=== PATIENT | female | born 1980 | race Caucasian/White ===

== ENCOUNTER 2018-07-08 09:55 | Inpatient (IN) | payer OTHER ==
[~2018-07-08 09:55] MED LIST: CEFAZOLIN 1 GM INJ; DEXAMETHASONE 4 MG/ML 1 ML INJ; METOCLOPRAMIDE 10 MG INJ; ONDANSETRON 4 MG INJ; PROPOFOL 200 MG INJ; ROCURONIUM 50 MG INJ
[2018-07-08] MEDS ORDERED: FENTAnyl 50 MCG/ML VIAL ×3 (11:27→14:17)
[2018-07-08] MEDS ORDERED: MIDAZOLAM 1 MG/ML 2 ML INJ (11:28)
[2018-07-08] MEDS ORDERED: DEXAMETHASONE 4 MG/ML 1 ML INJ (11:29)
[2018-07-08] MEDS ORDERED: ROCURONIUM 50 MG INJ (11:29)
[2018-07-08] MEDS ORDERED: SUCCINYLCHOLINE CHLORIDE 100 MG/5 ML SYG IV (11:29)
[2018-07-08] MEDS ORDERED: NALOXONE (0.4 MG/ML) INJ IV (12:00)
[2018-07-08] MEDS ORDERED: BISACODYL 10 MG SUPP PR (12:00)
[2018-07-08] MEDS: CEFAZOLIN 1 GM/50 ML (PMX) 50 ML IVPB ×2 (12:00→21:51)
[2018-07-08] MEDS ORDERED: AL HYDROX/MG HYDROX/SIMETH 30 ML CUP PO (12:00)
[2018-07-08] MEDS ORDERED: DIPHENHYDRAMINE 25 MG CAP PO (12:00)
[2018-07-08] MEDS ORDERED: ACETAMINOPHEN 325 MG TAB PO (12:00)
[2018-07-08] MEDS ORDERED: HYDROmorphONE 0.5 MG/0.5 ML SYG IV (12:00)
[2018-07-08] MEDS: HEPARIN 1000 UNITS/ML 10 ML INJ (12:29)
[2018-07-08] MEDS: CEFAZOLIN 1 GM INJ (12:29)
[2018-07-08] MEDS: SURGIFOAM POWDER 1 GM KIT ×3 (12:29→16:59)
[2018-07-08] MEDS: CA CHLORIDE 10% 10 ML SYRINGE (12:29)
[2018-07-08] MEDS ORDERED: SODIUM CL BACTERIOSTATIC 30 ML INJ (12:29)
[2018-07-08] MEDS: GELATIN SIZE 100 SPONGE (12:29)
[2018-07-08] MEDS: BUPIVACAINE 0.5%/EPI (SDV) 30 ML INJ (12:29)
[2018-07-08] MEDS: THROMBIN 5000 UNIT VIAL (12:29)
[2018-07-08] MEDS ORDERED: PROPOFOL 20 ML ×2 (12:40→18:15)
[2018-07-08] MEDS ORDERED: LIDOCAINE 2% (SDV) 5 ML INJ (12:40)
[2018-07-08] MEDS ORDERED: PHENYLephrine (100 MCG/ML) 5ML SYG (13:14)
[2018-07-08] MEDS ORDERED: SURGIFOAM POWDER 1 GM KIT (14:16)
[2018-07-08] MEDS ORDERED: LABETALOL HCL 20MG INJ (14:23)
[2018-07-08] MEDS ORDERED: THROMBIN 5000 UNIT VIAL ×5 (14:40→16:47)
[2018-07-08] MEDS ORDERED: GELATIN SIZE 100 SPONGE (15:31)
[2018-07-08] MEDS ORDERED: HYDROmorphONE 2 MG/ML SYG (15:47)
[2018-07-08] MEDS ORDERED: ACETAMINOPHEN 1000MG/100ML IV 100 ML (17:47)
[2018-07-08] MEDS: PROPOFOL 200 MG INJ IV (18:23)
[2018-07-08] MEDS ORDERED: MEPERIDINE 25 MG INJ (18:24)
[2018-07-08] MEDS ORDERED: MIDAZOLAM 1 MG/ML 2 ML INJ IV (18:30)
[2018-07-08] MEDS ORDERED: LABETALOL HCL 20MG INJ IV (18:30)
[2018-07-08] MEDS ORDERED: HYDROmorphONE 1 MG/5 ML IV SYRINGE IV ×3 (18:30)
[2018-07-08] MEDS ORDERED: hydrALAzine 20 MG INJ IV (18:30)
[2018-07-08] MEDS ORDERED: DIPHENHYDRAMINE 50 MG INJ IV (18:30)
[2018-07-08] MEDS ORDERED: IPRATROPIUM (NEB) 0.5 MG/2.5 ML AMP HHN (18:30)
[2018-07-08] MEDS ORDERED: HALOPERIDOL 5 MG INJ IV (18:30)
[2018-07-08] MEDS ORDERED: TRIMETHOBENZAMIDE 100 MG/ML VIAL IM (18:30)
[2018-07-08] MEDS ORDERED: PROCHLORPERAZINE 10 MG INJ IV (18:30)
[2018-07-08] MEDS ORDERED: FENTAnyl 50 MCG/ML VIAL IV ×2 (18:30)
[2018-07-08] MEDS ORDERED: METOCLOPRAMIDE 10 MG INJ (18:44)
[2018-07-08] MEDS: MEPERIDINE 25 MG INJ IV (19:18)
[2018-07-08] MEDS: METOCLOPRAMIDE 10 MG INJ IV (19:18)
[2018-07-08] MEDS: ONDANSETRON 4 MG INJ IV ×2 (19:18→23:01)
[2018-07-08] MEDS: HYDROmorphONE 0.2 MG/ML PCA IV (19:21)
[2018-07-08] MEDS: D5W-0.45 NACL + KCL 20 MEQ 1,000 ML IV ×2 (21:22→21:23)
[2018-07-08] MEDS: DOCUSATE SODIUM 100 MG CAP PO (21:22)
[2018-07-09] MEDS: CEPASTAT LOZENGE MT (02:26)
[2018-07-09] MEDS: ONDANSETRON 4 MG INJ IV ×2 (05:14→14:20)
[2018-07-09 05:20] LABS: ADD MAN DIFF? NO
[2018-07-09 05:27] LABS: ABNORMAL IP MESSAGE 1; HEMATOCRIT 28.3 % (37.0-47.0); HEMOGLOBIN 9.5 g/dl (12.0-16.0); IMMATURE GRANS #M 0.04 10^3/ul; IMMATURE GRANS % (M) 0.3 %; LYMPHOCYTES # 0.4 10^3/ul (0.8-2.9); LYMPHOCYTES % 3.5 % (15.0-51.0); MEAN CORPUSCULAR HEMOGLOBIN 31.3 pg (29.0-33.0); MEAN CORPUSCULAR HGB CONC 33.6 g/dl (32.0-37.0); MEAN CORPUSCULAR VOLUME 93.1 fl (82.0-101.0); MEAN PLATELET VOLUME 9.3 fl (7.4-10.4); MONOCYTE # 0.8 10^3/ul (0.3-0.9); MONOCYTES % 6.5 % (0.0-11.0); NEUTROPHIL # 10.6 10^3/ul (1.6-7.5); NEUTROPHILS % 89.7 % (39.0-77.0); PLATELET COUNT 219 10^3/UL (140-415); RED BLOOD COUNT 3.04 10^6/ul (4.20-5.40); RED CELL DISTRIBUTION WIDTH 12.5 % (11.5-14.5)
[2018-07-09 05:27] LABS: WHITE BLOOD COUNT 11.9 10^3/ul (4.8-10.8)
[2018-07-09] MEDS: PANTOPRAZOLE 40 MG INJ IV (06:03)
[2018-07-09 06:04] LABS: ANION GAP 12 (8-16); BLOOD UREA NITROGEN 7 mg/dl (7-20); CALCIUM 8.4 mg/dl (8.4-10.2); CARBON DIOXIDE 24 mmol/L (21-31); CHLORIDE 103 mmol/L (97-110); CREATININE 0.52 mg/dl (0.44-1.00); GLUCOSE 176 mg/dl (70-220); MAGNESIUM 1.7 mg/dl (1.7-2.5); POTASSIUM 4.4 mmol/L (3.5-5.1); SODIUM 135 mmol/L (135-144)
[2018-07-09] MEDS: CEFAZOLIN 1 GM/50 ML (PMX) 50 ML IVPB ×2 (06:04→14:20)
[2018-07-09 06:21] LABS: POSITIVE DIFF @See below
[2018-07-09] MEDS: D5W-0.45 NACL + KCL 20 MEQ 1,000 ML IV ×2 (07:48→15:11)
[2018-07-09] MEDS: DOCUSATE SODIUM 100 MG CAP PO ×2 (08:58→21:11)
[2018-07-09] MEDS: CYCLOBENZAPRINE 10 MG TAB PO (09:02)
[2018-07-09] MEDS: METOCLOPRAMIDE 10 MG INJ IV (10:15)
[2018-07-10] MEDS: HYDROmorphONE 0.2 MG/ML PCA IV (03:48)
[2018-07-10] MEDS: D5W-0.45 NACL + KCL 20 MEQ 1,000 ML IV ×2 (03:48→13:40)
[2018-07-10] MEDS: ONDANSETRON 4 MG INJ IV ×2 (03:50→12:43)
[2018-07-10] MEDS: PANTOPRAZOLE 40 MG INJ IV (05:50)
[2018-07-10 05:56] LABS: ADD MAN DIFF? NO
[2018-07-10 06:05] LABS: BASOPHILS % 0.2 % (0.0-2.0); EOSINOPHILS % 0.1 % (0.0-7.0); HEMATOCRIT 27.5 % (37.0-47.0); HEMOGLOBIN 9.2 g/dl (12.0-16.0); IMMATURE GRANS #M 0.04 10^3/ul; IMMATURE GRANS % (M) 0.4 %; LYMPHOCYTES # 0.8 10^3/ul (0.8-2.9); LYMPHOCYTES % 8.5 % (15.0-51.0); MEAN CORPUSCULAR HEMOGLOBIN 31.4 pg (29.0-33.0); MEAN CORPUSCULAR HGB CONC 33.5 g/dl (32.0-37.0); MEAN CORPUSCULAR VOLUME 93.9 fl (82.0-101.0); MEAN PLATELET VOLUME 9.9 fl (7.4-10.4); MONOCYTE # 0.9 10^3/ul (0.3-0.9); MONOCYTES % 8.9 % (0.0-11.0); NEUTROPHILS % 81.9 % (39.0-77.0); PLATELET COUNT 215 10^3/UL (140-415); RED BLOOD COUNT 2.93 10^6/ul (4.20-5.40); RED CELL DISTRIBUTION WIDTH 12.9 % (11.5-14.5)
[2018-07-10 06:05] LABS: WHITE BLOOD COUNT 9.8 10^3/ul (4.8-10.8)
[2018-07-10 06:44] LABS: ANION GAP 10 (8-16); BLOOD UREA NITROGEN 6 mg/dl (7-20); CALCIUM 8.3 mg/dl (8.4-10.2); CARBON DIOXIDE 26 mmol/L (21-31); CHLORIDE 106 mmol/L (97-110); CREATININE 0.61 mg/dl (0.44-1.00); GLUCOSE 113 mg/dl (70-220); MAGNESIUM 1.9 mg/dl (1.7-2.5); POTASSIUM 3.7 mmol/L (3.5-5.1); SODIUM 138 mmol/L (135-144)
[2018-07-10] MEDS: DOCUSATE SODIUM 100 MG CAP PO ×2 (08:57→20:34)
[2018-07-10] MEDS: OXYCODONE/ACETAMINOPHEN (10/325) TAB PO ×2 (12:35→19:00)
[2018-07-10] MEDS: DIPHENHYDRAMINE 50 MG INJ IV ×2 (14:13→20:35)
[2018-07-11] MEDS: OXYCODONE/ACETAMINOPHEN (10/325) TAB PO ×4 (00:24→14:07)
[2018-07-11] MEDS: DIPHENHYDRAMINE 50 MG INJ IV (04:04)
[2018-07-11] MEDS: PANTOPRAZOLE 40 MG INJ IV (05:10)
[2018-07-11 05:46] LABS: ADD MAN DIFF? NO
[2018-07-11 05:47] LABS: WHITE BLOOD COUNT 7.3 10^3/ul (4.8-10.8)
[2018-07-11 05:47] LABS: BASOPHILS % 0.6 % (0.0-2.0); EOSINOPHILS # 0.1 10^3/ul (0.0-0.5); EOSINOPHILS % 1.4 % (0.0-7.0); HEMATOCRIT 25.1 % (37.0-47.0); HEMOGLOBIN 8.2 g/dl (12.0-16.0); LYMPHOCYTES # 1.9 10^3/ul (0.8-2.9); LYMPHOCYTES % 25.7 % (15.0-51.0); MEAN CORPUSCULAR HEMOGLOBIN 30.8 pg (29.0-33.0); MEAN CORPUSCULAR HGB CONC 32.7 g/dl (32.0-37.0); MEAN CORPUSCULAR VOLUME 94.4 fl (82.0-101.0); MEAN PLATELET VOLUME 9.6 fl (7.4-10.4); MONOCYTE # 0.7 10^3/ul (0.3-0.9); MONOCYTES % 9.6 % (0.0-11.0); NEUTROPHIL # 4.5 10^3/ul (1.6-7.5); NEUTROPHILS % 62.3 % (39.0-77.0); PLATELET COUNT 209 10^3/UL (140-415); RED BLOOD COUNT 2.66 10^6/ul (4.20-5.40); RED CELL DISTRIBUTION WIDTH 12.8 % (11.5-14.5)
[2018-07-11 06:08] LABS: ANION GAP 8 (8-16); BLOOD UREA NITROGEN 9 mg/dl (7-20); CALCIUM 8.2 mg/dl (8.4-10.2); CARBON DIOXIDE 27 mmol/L (21-31); CHLORIDE 106 mmol/L (97-110); CREATININE 0.55 mg/dl (0.44-1.00); GLUCOSE 90 mg/dl (70-220); MAGNESIUM 2.1 mg/dl (1.7-2.5); POTASSIUM 3.7 mmol/L (3.5-5.1); SODIUM 137 mmol/L (135-144)
[2018-07-11] MEDS: DOCUSATE SODIUM 100 MG CAP PO (08:50)
[2018-07-11] MEDS: D5W-0.45 NACL + KCL 20 MEQ 1,000 ML IV ×2 (09:48→11:01)
[2018-07-11] MEDS: ONDANSETRON 4 MG INJ IV ×2 (12:50→17:29)
== END 2018-07-11 18:05 | disposition home or self-care (01) | DRG 455 ==
LOC: REC 09:55 → MS1 20:48
PROC: 0SG00A0 Fusion of Lumbar Vertebral Joint with Interbody Fusion Device, Anterior Approach, Anterior Column, Open Approach (ICD-10-PCS; principal; 2018-07-08 12:00)
PROC: 0SG00K1 Fusion of Lumbar Vertebral Joint with Nonautologous Tissue Substitute, Posterior Approach, Posterior Column, Open Approach (ICD-10-PCS; 2018-07-08 12:00)
PROC: 0SG30A0 Fusion of Lumbosacral Joint with Interbody Fusion Device, Anterior Approach, Anterior Column, Open Approach (ICD-10-PCS; 2018-07-08 12:00)
PROC: 0ST20ZZ Resection of Lumbar Vertebral Disc, Open Approach (ICD-10-PCS; 2018-07-08 12:00)
PROC: 0ST40ZZ Resection of Lumbosacral Disc, Open Approach (ICD-10-PCS; 2018-07-08 12:00)
PROC: 0SG30K1 Fusion of Lumbosacral Joint with Nonautologous Tissue Substitute, Posterior Approach, Posterior Column, Open Approach (ICD-10-PCS; 2018-07-08 12:00)
PROC: 07DR3ZZ Extraction of Iliac Bone Marrow, Percutaneous Approach (ICD-10-PCS; 2018-07-08 12:00)
PROC: 4A11X4G Monitoring of Peripheral Nervous Electrical Activity, Intraoperative, External Approach (ICD-10-PCS; 2018-07-08 12:00)
DX: M51.16 Intervertebral disc disorders with radiculopathy, lumbar region (principal); D64.9 Anemia, unspecified; G89.4 Chronic pain syndrome; G89.18 Other acute postprocedural pain; R11.0 Nausea; R53.1 Weakness
CPT/HCPCS: 71045; 72114; 80048; 83735; 84703; 85025; 86850; 86900; 86901; 86920; 86999; 87086; 97110; 97116; 97163; 97530